=== PATIENT | male | born 1955 | race Caucasian/White ===

== ENCOUNTER 2024-02-10 12:16 | Emergency (ER) | payer MEDICARE, OTHER, SELFPAY ==
[2024-02-10] VITALS (44 sets, daily range): BP systolic 68–118; BP diastolic 49–94; PULSE 94–115; RESP 11–26; TEMP 36.6; O2SAT 96–100
--- NOTE | ~2024-02-10 | CT_ITS ---
EXAMINATION: CT facial & cervical spine wo DATE: 02/10/2024 13:51 INDICATION: Fall from bed. Head trauma. TECHNIQUE: Computed tomography (CT) of the facial bones and maxillofacial region and cervical spine w as performed without intravenous contrast. Automated exposure control and iterative reconstruction te chnique were employed. Exam dose: 188.91 mGy-cm total exam DLP. COMPARISON: 02/10/2024 CT brain FINDINGS: Examination is limited by patient motion. There is suggestion of an acute subdural hematoma in the left frontal and parietal areas but this is due to patient motion, with ghost images of the s kull from motion simulating a subdural hematoma. Review of the noncontrast CT head images reveals no evidence of acute subdural hematoma at this location. There is complete opacification left maxillary sinus with prominent asymmetric thickening of the bony wall of this sinus, indicating that this is chronic. There is mild deformity of the nasal bones, likely chronic. The anterior nasal spine is intact. The frontozygomatic sutures and zygomatic arches and orbital stephens appear intact. The pterygoid plate s appear normal. No mandibular fracture is evident. Normal alignment at the temporomandibular joints. The paranasal sinuses with the exception of the left maxillary sinus and some patchy opacification of the ethmoid air cells, primarily on the left, are unremarkable. The mastoid air cells are normally d eveloped and aerated bilaterally. There is nonstandard positioning for the cervical spine. Normal alignment at the atlantoaxial joints. C1 and C2 are normally aligned and the odontoid process is intact. There is straightening the cervical spine which may be due to muscle spasm. No fracture or dislocation or locked facet or prevertebral soft tissue swelling is evident. There is prominent cervical spondylosis including severe degenerative disc disease, prominent posteri or spurring and mild retrolisthesis at C4-5, severe degenerative disc disease at C5-6 and C6-7 as wel l. There is prominent uncovertebral joint spurring at C4-5, C5-6 and C6-7. There are degenerative scotty nges noted the apophyseal joints. IMPRESSION: No facial fracture is detected Straightening of the cervical spine, which may be due to muscle spasm Severe cervical spondylosis Reviewed, dictated and finalized at [facility]. Reviewed, dictated and finalized at [facility].
--- NOTE | ~2024-02-10 | CT_ITS ---
EXAMINATION: CT brain wo con DATE: 02/10/2024 13:50 INDICATION: Ground-level fall from bed. Head injury. TECHNIQUE: Computed tomography (CT) of the head was performed without intravenous contrast. The mA wa s adjusted according to patient size. Iterative reconstruction technique was employed. Exam dose: 10 59.33 mGy-cm total exam DLP. COMPARISON: None FINDINGS: The examination is limited by patient motion and patient inability to tolerate standard pos itioning. There is a left parasagittal linear lucency of the occipital bone which appears to have smooth thin s clerotic margins, likely a chronic finding, possibly a nutrient channel or less likely old fracture. This is not likely a recent fracture. Further, there is no overlying soft tissue swelling. No skull fracture is noted otherwise. There is complete opacification of the left maxillary sinus and patchy soft tissue opacification of t he left ethmoid air cells. The mastoid air cells are well-developed and aerated. Bilateral vertebral artery calcifications. Bilateral carotid siphon internal carotid artery calcifica tions. There is nonspecific diminished attenuation of the cerebral white matter, likely due to chronic small vessel ischemic changes. There is prominent central and cortical cerebral atrophy. No intracranial mass lesion or hemorrhage, midline shift or mass effect or subdural or epidural hemat chan is detected. IMPRESSION: Central and cortical cerebral and cerebellar atrophy Cerebral atherosclerosis and chronic small vessel ischemic changes of the cerebral white matter No skull fracture or acute intracranial abnormality is identified Reviewed, dictated and finalized at [facility]. Reviewed, dictated and finalized at [facility]. IMPRESSION: Central and cortical cerebral and cerebellar atrophy Cerebral atherosclerosis and chronic small vessel ischemic changes of the cereb ral white matter No skull fracture or acute intracranial abnormality is identified
--- NOTE | ~2024-02-10 | XR_ITS ---
XR chest 1V portable DATE: 02/10/2024 14:14 INDICATION: Infection TECHNIQUE: Portable supine AP chest on 02/10/2024 at 1409 hours COMPARISON: None FINDINGS: Normal heart size. Aortic calcification and mild unfolding. No hilar or mediastinal enlarge ment. There is [id number] elevation right diaphragm. No pulmonary infiltrate or consolidation, pleura l effusion or pulmonary vascular congestion or pneumothorax is detected. IMPRESSION: Mild to moderate elevation right diaphragm No active cardiopulmonary disease Reviewed, dictated and finalized at [facility].
--- NOTE | 2024-02-10 13:05 | ED.FALL ---
HPI - Fall General Chief Complaint: Fall Stated Complaint: fall Time Seen by Provider: 02/10/24 12:17 History of Present Illness HPI Narrative: 68-year-old male presents to the emergency department for evaluation for a fall. Patient states he struck his face but denies any other pain or injury. Patient is currently on hospice comfort care for metastatic prostate cancer. Related Data Allergies Allergy/AdvReac Type Severity Reaction Status Date / Time No Known Allergies Allergy Verified 02/10/24 13:34 Review of Systems Review of Systems: All systems reviewed & are unremarkable except as noted in HPI and below Exam Narrative: APPEARANCE: Pale and ill-appearing HEAD: normocephalic, atraumatic. EYES: PERRLA/EOMI, conjunctivae clear. NOSE: Normal no drainage Mouth: Fracture of left incisor EARS:TMS clear with good light reflex. THROAT: Pharynx clear, no exudate. NECK: Supple. No adenopathy, no masses. RESPIRATORY: Airway patent, respirations nonlabored. Clear to auscultation bilaterally, no rales, rhonchi, wheezing. CARDIOVASCULAR: Regular rate and rhythm without murmurs rubs or gallops. ABDOMINAL: Soft, nontender, nondistended, normal bowel sounds MUSCULOSKELETAL: Moves all extremities. Strength/ROM intact, No edema, No calf tenderness. NEURO: Alert. Cranial nerves II through XII intact. Grossly intact Skin: Draining abscess on the right buttock PSYCHIATRIC: Normal affect/mood. Course Course Emergency Course: Patient family updated the results of the workup and both patient and family are requesting the patient be transferred back to his care home. Vital Signs Vital signs: Vital Signs Temperature 97.8 F 02/10/24 12:16 Pulse Rate 114 H 02/10/24 12:16 Respiratory Rate 12 02/10/24 12:16 Blood Pressure 89/65 L 02/10/24 12:16 Pulse Oximetry 97 02/10/24 12:16 Oxygen Delivery Room Air 02/10/24 12:16 Temperature 97.8 F 02/10/24 14:58 Pulse Rate 94 02/10/24 17:30 Respiratory Rate 16 02/10/24 17:30 Blood Pressure 93/69 L 02/10/24 17:30 Pulse Oximetry 97 02/10/24 17:30 Oxygen Delivery Room Air 02/10/24 12:16 MDM - Fall MDM Narrative Medical decision making narrative: 68-year-old male presenting to the emergency department for evaluation after having a fall from bed. Patient is currently palliative care for metastatic prostate cancer. Patient does not want to be admitted. Patient is aware that of his low potassium and low magnesium could lead to cardiac arrhythmia that could lead to his . Patient is comfortable with this risk. Both patient and family were present during this conversation. Patient wishes to be transferred back to his care home to continue palliative care. Prior to discharge we did find a draining abscess on the patient's right buttock. Once again patient family strongly preferred to be transfer back to home. Area around the abscess is not cellulitic. Patient denies any pain or tenderness to palpation. Patient was started on oral antibiotics. Differential Diagnosis Differential diagnosis: Likely other (Subarachnoid hemorrhage, subdural hematoma, facial fracture, hypokalemia, hypomagnesemia,) Lab Data Attestation: I reviewed the patient's lab results. 02/10/24 13:16 02/10/24 13:16 Labs: Lab Results 02/10/24 02/10/24 02/10/24 Range/Units 13:15 13:16 13:26 WBC 6.6 (4.5-10.0) K/mm3 RBC 2.53 L (4.6-6.20) M/mm3 Hgb 7.8 L (14.0-18.0) g/dL Hct 23.3 L (42.0-52.0) % MCV 92.1 (80-100) fl MCH 30.8 (26-34) pg MCHC 33.5 (32-36) g/dl RDW 16.3 H (11.5-14.5) % Plt Count 308 (150-375) k/mm3 MPV 10.8 H (7.4-10.4) fl Immature Gran % (Auto) 0.9 H (0-0.5) % Neut % (Auto) 84.2 H (45.5-73.1) % Lymph % (Auto) 8.2 L (18.3-44.2) % [place] % (Auto) 5.6 (2.6-8.5) % Eos % (Auto) 0.9 (0-4.4) % Baso % (Auto) 0.2 (0.2-1.2) % Lymph # (Auto) 0.54 L (0.9-3
[2024-02-10 13:26] LABS: Basophils Percent Auto 0.2 % (0.2-1.2); Eosinophils Absolute Auto 0.1 K/mm3 (0-0.3); Eosinophils Percent Auto 0.9 % (0-4.4); Hematocrit 23.3 % (42.0-52.0); Hemoglobin 7.8 g/dL (14.0-18.0); Immature Granulocyte Absolute 0.06 K/mm3 (0.00-0.031); Immature Granulocyte Percent A 0.9 % (0-0.5); Lymphocytes Absolute Auto 0.54 K/mm3 (0.9-3.2); Lymphocytes Percent Auto 8.2 % (18.3-44.2); Mean Corpuscular HGB Conc 33.5 g/dl (32-36); Mean Corpuscular Hemoglobin 30.8 pg (26-34); Mean Corpuscular Volume 92.1 fl (80-100); Mean Platelet Volume 10.8 fl (7.4-10.4); Monocytes Absolute Auto 0.4 K/mm3 (0.1-0.6); Monocytes Percent Auto 5.6 % (2.6-8.5); Neutrophils Absolute Auto 5.5 K/mm3 (1.3-6.7); Neutrophils Percent Auto 84.2 % (45.5-73.1); Platelet Count Result 308 k/mm3 (150-375); Red Blood Count 2.53 M/mm3 (4.6-6.20); Red Cell Distribution Width 16.3 % (11.5-14.5); White Blood Count 6.6 K/mm3 (4.5-10.0)
[2024-02-10 13:32] LABS: INR 1.1; Prothrombin Time 15.1 Seconds (11.1-14.7)
[2024-02-10 13:33] LABS: Partial Thromboplastin Time 29.7 Seconds (22.3-36.8)
[2024-02-10 13:34] LABS: Alanine Aminotransferase 11 U/L (6-50); Albumin Level 2.8 g/dL (3.5-5.1); Alkaline Phosphatase 77 U/L (38-126); Anion Gap 12 mmol/L (4-12); Aspartate Amino Transferase 23 U/L (17-59); Bilirubin,Total 0.8 mg/dL (0.2-1.3); Blood Urea Nitrogen 25 mg/dL (9-20); Carbon Dioxide 29 mmol/L (22-30); Chloride 92 mmol/L (98-107); Estimated CRCL calculation 57 ml/min; Estimated Glomerular Filt Rate > 60; Glucose 150 mg/dL (65-110); Potassium 2.6 mmol/L (3.4-5.0); Sodium 133 mmol/L (137-145)
[2024-02-10 13:49] LABS: Magnesium 1.4 mg/dL (1.6-2.3)
[2024-02-10] MEDS: MAGNESIUM SULF 1 GM/D5W 100 ML 1 GM/100 ML BAG IVPB (14:07)
[2024-02-10] MEDS: SODIUM CHLORIDE 0.9% IV 1,000 ML 999 ML IV CONT (14:13)
[2024-02-10] MEDS: POTASSIUM CHLORIDE 20 MEQ PACKET (FOR LIQUID) 40 MEQ PO (14:13)
[2024-02-10 14:16] LABS: Add Urine Microscopic? YES; Appearance Urine Clear (Clear); Bacteria Urine None Seen /hpf; Bilirubin Urine 2+ (Negative); Blood Urine Negative (Negative); Color Urine Dark Yellow (Yellow); Glucose Urine UA Negative (Negative); Ketones Urine Trace mg/dL (Negative); Leukocyte Esterase Ur Trace LEU/UL (Negative); Need Manual Microscopic Reviewed; Nitrate Urine Negative (Negative); Non Pathogenic Casts 0-2; Protein Urine Trace mg/dL (Negative); RBC Urine 0-2 /hpf (0-2); Specific Grav Ur 1.025 (1.001-1.035); Squamous Epithelial Cell Urine None Seen /hpf (Few); WBC Urine 0-5 /hpf (0-3)
[2024-02-10] MEDS: KCL 20 MEQ/SW 100 ML 100 ML 50 MEQ IVPB (14:56)
[2024-02-10 16:19] LABS: Reflex Lactic Acid Yes or No Add Lactic
[2024-02-10 17:05] LABS: Lactic Acid 3.7 mmol/L (0.7-2.0)
--- NOTE | 2024-02-10 17:31 | PC.NURSE ---
pt had depends cleaned prior to dept the ED
== END 2024-02-10 17:32 | disposition hospice, home (50) ==
PROVIDERS: Emergency Provider Emergency Medicine; PCP Family Medicine
DX: S09.93XA Unspecified injury of face, initial encounter (principal); L02.31 Cutaneous abscess of buttock; E83.42 Hypomagnesemia; E87.6 Hypokalemia; C61 Malignant neoplasm of prostate; C79.9 Secondary malignant neoplasm of unspecified site; M47.812 Spondylosis without myelopathy or radiculopathy, cervical region; G31.9 Degenerative disease of nervous system, unspecified; I67.2 Cerebral atherosclerosis; W06.XXXA Fall from bed, initial encounter
CPT/HCPCS: 36415; 70450; 70486; 71045; 72125; 80053; 81001; 83605; 83735; 85025; 85610; 85730; 96365; 96367; 99284; A9270; J3475; J3480; J7030